=== PATIENT | male | born 1975 | race Two or more races ===

== ENCOUNTER 2018-11-16 19:02 | Emergency (ER) | payer BC ==
[~2018-11-16] VITALS: Ht 167.6 cm; Wt 89.8 kg
[2018-11-16 19:33] VITALS: BP 129/85
--- NOTE | 2018-11-16 19:36 | NUR ---
PT ALBARO C/O R SHOULDER/WRIST PAIN X 2 WEEKS S/P MOVING HEAVY THINGS AT WORK. PATIENT STATES HIS SHOULDER MAKES A "POPPING" SOUND. PT AOX4. NAD NOTED. RESP EVEN AND UNLABORED. WILL CONTINUE TO MONITOR.
[2018-11-16] MEDS ORDERED: IBUPROFEN 600 MG TABLET PO ONE ×2 (19:54→20:00)
--- NOTE | 2018-11-16 20:07 | NUR ---
RADIOLOGY AT BEDSIDE FOR XRAY
--- NOTE | 2018-11-16 21:04 | NUR ---
ROBI CALLED TO READ WRIST AND SHOULDER XRAY
== END 2018-11-16 21:52 | disposition home or self-care (01) ==
LOC: ER 19:09
DX: M77.8 Other enthesopathies, not elsewhere classified (principal); M25.511 Pain in right shoulder; E11.9 Type 2 diabetes mellitus without complications
CPT/HCPCS: 73030; 73110; 99283; A4606

== ENCOUNTER 2021-02-13 20:41 | Emergency (ER) | payer BC ==
[~2021-02-13] VITALS: Ht 167.6 cm; Wt 87.1 kg
--- NOTE | 2021-02-13 20:41 | NUR ---
RT GROIN PAIN X 3WEEKS DENIES ANY HX OF HERNIA, PT AAOX4, DENIES ANY SOB, VSS, NAD NOTED, PENDING ER PROVIDER EVAL
[2021-02-13] MEDS ORDERED: INSULIN REGULAR, HUMAN 100 UNIT/ML 10 ML VIAL ONE (21:26)
[2021-02-13] MEDS ORDERED: KETOROLAC TROMETHAMINE 15 MG/ML VIAL ONE (21:26)
[2021-02-13] MEDS ORDERED: KETOROLAC TROMETHAMINE INJ 30 MG/ML VIAL IV ONE (21:30)
[2021-02-13] MEDS ORDERED: IV NS 0.9% 1,000 ML BAG IV ONE (21:30)
[2021-02-13] MEDS ORDERED: INSULIN REGULAR, HUMAN 100 UNIT/ML 10 ML VIAL SQ ONE (21:30)
--- NOTE | 2021-02-13 21:30 | NUR ---
ADDENDUM: Intravenous End Time Documentation: Normal saline 1 liter (IV-WO) : start time: 2129 ; end time: 2229 : IV site: LAC PIV # 20 Port # 1
[2021-02-13 21:42] LABS: BASOPHILS % (AUTO) 0.5 % (0.0-2.0); EOSINOPHILS % (AUTO) 1.1 % (0.0-6.0); HEMATOCRIT 39 % (39-51); HEMOGLOBIN 13.3 g/dL (13.5-17.5); LYMPHOCYTES % (AUTO) 32.8 % (20.0-44.0); MEAN CORPUSCULAR HGB CONC 34 g/dl (31.0-36.0); MEAN CORPUSCULAR VOLUME 87 fL (80-96); MONOCYTES # (AUTO) 0.5 /CMM (0.1-1.30); MONOCYTES % (AUTO) 7.6 % (2.0-12.0); NEUTROPHILS # (AUTO) 3.6 /CMM (1.8-8.9); PLATELET COUNT (AUTO) 207 /CMM (150-450); RED BLOOD CELL COUNT(AUTO) 4.53 MIL/uL (4.5-6.0); WHITE BLOOD COUNT (AUTO) 6.2 K/uL (4.3-11.0)
[2021-02-13 22:34] LABS: ALBUMIN 2.8 g/dL (3.4-5.0); BILIRUBIN,DIRECT 0.1 mg/dL (0.0-0.2); BILIRUBIN,TOTAL 0.3 mg/dL (0.2-1.0); POTASSIUM 3.8 mmol/L (3.5-5.1); TOTAL PROTEIN, SERUM 6.6 g/dL (6.4-8.2)
--- NOTE | 2021-02-13 22:48 | NUR ---
BS 320
[2021-02-13 22:52] LABS: BILIRUBIN,URINE NEGATIVE (NEGATIVE); COLOR,URINE YELLOW (YELLOW); LEUKOCYTE ESTERASE ,URINE NEGATIVE (NEGATIVE); NITRITE, URINE NEGATIVE (NEGATIVE); PROTEIN,URINE 100 mg/dl (NEGATIVE); UGLUCOSE >=1000 mg/dL (NEGATIVE); UROBILINOGEN,URINE 0.2 EU/dL (0.2)
[2021-02-13] MEDS ORDERED: CEFTRIAXONE 1GM BAG (ER ONLY) 1 GM/50 ML PIGGYBACK IV ONE (23:00)
[2021-02-13 23:06] LABS: BACTERIA,URINE None seen /HPF (None Seen); SQUAMOUS EPITHELIAL CELL,UR Few /HPF (None Seen)
[2021-02-13] MEDS ORDERED: DOXY-326 PO (23:12)
[2021-02-13] MEDS ORDERED: [UNRECOGNIZED DRUG - CODE] TP (23:12)
[2021-02-13] MEDS ORDERED: CEFTRIAXONE 1GM BAG (ER ONLY) 50 ML IV ONE (23:21)
--- NOTE | 2021-02-13 23:28 | NUR ---
Patient discharged to home in stable condition. Written and verbal after care instructions given. Patient verbalizes understanding of instruction. IV removed. Catheter intact and site benign. Pressure and 4x4 applied to site. No bleeding noted.
[2021-02-13 23:34] VITALS: BP 132/90
== END 2021-02-13 23:34 | disposition home or self-care (01) ==
LOC: ER 20:41
DX: E11.65 Type 2 diabetes mellitus with hyperglycemia (principal); B37.9 Candidiasis, unspecified; N47.6 Balanoposthitis; N45.2 Orchitis; R10.31 Right lower quadrant pain; R59.0 Localized enlarged lymph nodes
CPT/HCPCS: 36415; 76870; 80048; 80076; 81001; 82962 ×2; 83605; 85025; 87040 ×2; 96361; 96365; 96372; 96375; 99285; J0696; J1815; J1885; J7030